=== PATIENT | female | born 1930 | race Caucasian/White ===

== ENCOUNTER 2019-06-23 18:31 | Emergency (ER) | payer OTHER ==
[~2019-06-23] VITALS: Ht 162.6 cm; Wt 40.9 kg
[~2019-06-23 18:31] MED LIST: NAPR-985 PO
[2019-06-23 18:36] VITALS: Ht 162.6 cm; Wt 40.9 kg
[2019-06-23] MEDS ORDERED: SOD CHLORIDE 0.9% 1,000 ML IV STA (18:55)
--- NOTE | 2019-06-23 20:00 | ERD ---
ER Documentation Chief Complaint Chief Complaint BIB RA FROM HOME W/ C/O LT KNEE PAIN X4 MONTHS, DENIES ANY INJURY HPI This is an 88-year-old female who lives alone and is able to attend her activities of daily living. She was brought into the emergency department by EMS as she stated she called 911 and she was unable to get to the emergency department on her own. She indicates that the main reason for calling 911 as she felt dizzy and lightheaded. The patient stated she woke this morning and made a large breakfast as she normally does. Shortly after she started to feel very lightheaded and dizzy and felt as though she was going to pass out. She stated she sat down and her symptoms did not improve. She denied any complete transient loss of consciousness. She denied a headache. She denied any changes in vision. She stated the dizziness was not a spinning-like sensation but where she felt very unsteady. She also indicates that she has a history of arthralgias and has been experiencing left knee pain for 4 months. She denies any trauma to the left knee. She had no fevers no shaking no chills. She denies any swelling to the left knee. She denies any chest pain. She has no shortness of breath at rest or exertion. She has a past medical history of hypertension and is compliant with her medications. She denies any frequency urgency or dysuria. ROS All systems reviewed and are negative except as per history of present illness. Allergies Allergies: Coded Allergies: No Known Allergy (Unverified , 06/23/19) PMhx/Soc Medical and Surgical Hx: pt denies Medical Hx, pt denies Surgical Hx Hx Alcohol Use: No Hx Substance Use: No Hx Tobacco Use: No Smoking Status: Never smoker Physical Exam Vitals Vital Signs Date Temp Pulse Resp B/P (MAP) Pulse Ox O2 O2 Flow FiO2 Time Delivery Rate 06/23/19 76 20 130/96 99 Room Air 20:46 (107) 06/23/19 98.7 81 19 121/81 96 Room Air 18:43 (94) 06/23/19 98.7 105 19 128/79 96 18:36 (95) Physical Exam Constitutional:Well-developed. Well-nourished and disheveled HEENT:Normocephalic. Atraumatic.Pupils were equal round reactive to light. Very dry mucous membranes.No tonsillar exudates. Poor oral dentition Neck: No nuchal rigidity. No lymphadenopathy. No posterior cervical spine tenderness or step-offs. Respiratory: Not using accessory muscles of respiration.Lungs were clear to auscultation bilaterally. No rhonchi. No rales. No wheezing. Cardiovascular: Regular rate regular rhythm.No murmurs. No rubs were a ppreciated.S1, S2 normal. Distal pulses are palpable 2+ bilaterally. GI: Abdomen was soft. Nontender. Non Distended. No pulsatile abdominal masses or bruits. No rebound. No guarding. Bowel sounds were present and normal. Muscle skeletal: Full range of motion of both the upper and lower extremities bilaterally.Normal muscle tone.No assymetrical calf tenderness or swelling. Tenderness over the left patella and no laxity on valgus or varus stress testing of the left of the right knee. Skin: No petechia, no purpura. No lesions on the palms or the soles of the feet. No maculopapular rash. NEURO: Patient was alert, awake, orientated x3.No facial droop. Gait observed and normal with no ataxia.Speech had regular rate and rhythm. No focal neurological deficits. Result Diagram: 06/23/19193606/23/191936 Results 24 hrs Laboratory Tests Test 06/23/19 19:37 White Blood Count 7.7 10^3/ul Red Blood Count 4.81 10^6/ul Hemoglobin 14.2 g/dl Hematocrit 45.5 % Mean Corpuscular Volume 94.6 fl Mean Corpuscular Hemoglobin 29.5 pg Mean Corpuscular Hemoglobin Concent 31.2 g/dl Red Cell Distribution Width 14.0 % Platelet Count 355 10^3/UL Mean Platelet Volume 9.6 fl Immature Granulocytes % 0.700 % Neutrophils % 70.5 % Lymphocytes % 17.7 % Monocytes % 6.9 % Eosinophils % 3.4 % Basophils % 0.8 % Nucleated Red Blood Cells % 0.0 /100WBC Immature Granulocytes # 0.050 10^3/ul Neutrophils # 5.4 10^3/ul Lymphocytes # 1.4 10^3/ul Monocytes # 0.5 10^3/ul Eosinophils # 0.3 10^3/ul Basophils # 0.1 10^3/ul Nucleated Red Blood Cells # 0.0 10^3/ul Prothrombin Time 12.2 Sec Prothrombin Time Ratio 1.0 INR International Normalized Ratio 0.89 Activated Partial Thromboplast Time 27.8 Sec Sodium Level 143 mmol/L Potassium Level 5.3 mmol/L Chloride Level 106 mmol/L Carbon Dioxide Level 27 mmol/L Anion Gap 10 Blood Urea Nitrogen 33 mg/dl Creatinine 1.25 mg/dl Est Glomerular Filtrat Rate mL/min mL/min Glucose Level 104 mg/dl Calcium Level 9.8 mg/dl Total Bilirubin 0.7 mg/dl Direct Bilirubin 0.00 mg/dl Indirect Bilirubin 0.7 mg/dl Aspartate Amino Transf (AST/SGOT) 30 IU/L Alanine Aminotransferase (ALT/SGPT) 25 IU/L Alkaline Phosphatase 78 IU/L Creatine Kinase 55 IU/L Creatine Kinase Index 1.6 Creatinine Kinase MB (Mass) 0.89 ng/ml Troponin I < 0.012 ng/ml B-Type Natriuretic Peptide 1310 PG/ML Total Protein 9.3 g/dl Albumin 4.9 g/dl Globulin 4.40 g/dl Albumin/Globulin Ratio 1.11 Current Medications Medications Dose Sig/Aroldo Start Time Status Last (Trade) Ordered Route PRN Stop Time Admin Dose Reason Admin Sodium 1,000 ml @ Q1H STAT 06/23/19 DC 06/23/19 Chloride 1,000 mls/hr IV 18:55 06/23/19 19:39 19:54 Procedures/MDM This patient was seen and evaluated by myself. The patient presented to the emergency department complaining of dizziness. My differential diagnosis included but was not limited to hypovolemia, myocardial infarction, pulmonary embolism, hypoglycemia, hypoxia, anemia, vasovagal episode, hypothyroidism, anxiety, peripheral or central vertigo. The patient was placed on a pharmaceutical worker, continuous pulse oximetry and IV access established by nursing staff. I obtained a 12-lead EKG tracing to rule for atypical myocardial infarction. 12 Lead EKG tracing ordered and reviewed by myself showed: Normal sinus rhythm of 84 bpm and no arrhythmia. TX interval normal. QRS duration normal. No ST segment elevation No ST segment depression. No changes consistent with acute ischemia. PVCs Patient also complained of left knee pain. Utilizing the auto ankle knee rules radiographic imaging was obtained of the left knee. This was reviewed by the radiologist myself and indicate the followin. No radiographic evidence of acute osseous abnormality noting background osteopenia. 2. Small tricompartmental osteophytes and vascular calcifications. Given that the patient was feeling dizzy and lightheaded I did feel is necessary to obtain a CT scan the patient's head. This was reviewed by the radiologist and indicate the following: No acute intracranial pathology. Moderate cerebral volume loss. 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 Moderate chronic microvascular ischemic changes. Atherosclerotic arterial calcifications. The patient had prerenal azotemia. This was treated with IV fluids. The patient's potassium was 5.3 and there is no peak T waves. I did not feel this required treatment as this was on the high end of normal. The patient's BNP was elevated at 1300. There was no signs of respiratory distress. No physical exam findings to suggest congestive heart failure. I obtained a chest radiograph which was reviewed by the radiologist myself and indicate the followin. The lungs are hyperinflated, suggesting COPD. 2. No acute cardiopulmonary disease demonstrated. I offered admission to the patient for observation however she stated she would prefer to be discharged home. Given the patient's age, and that she lives alone the patient was discharged at 9:30 PM with a taxi voucher. She was given copies of all of her lab work in addition to her radiographic imaging as she states she will follow-up with her primary care physician. Regarding the patient's knee pain she stated she is scheduled to see an orthopedic surgeon as I felt her symptoms were result of osteoarthritic changes. The patient was discharged home in fair condition. They were instructed to return to the emergency department at any time if there was any worsening of their condition. The patient stated they would follow up with their PCP in the next 24-48 hours to initiate a suitable medication regimen under the care of their PCP as well as to allow their PCP to monitor any drug reactions. The patient was discharged home with prescriptions after they gave informed consent to the new medication. They were also fully informed by myself on the adverse effects and adverse drug interactions in order to provide adequate safeguards to prevent possible adverse reactions to medications. Departure Diagnosis: Primary Impression: Knee pain Chronicity: acute Laterality: left Qualified Codes: M25.562 - Pain in left knee Additional Impression: Prerenal azotemia Condition: Fair BLANCA PEREZ MD Jun 23, 2019 20:00
[2019-06-23 20:46] VITALS: BP 130/96; PULSE 76; RESP 20
== END 2019-06-23 21:34 | disposition home or self-care (01) ==
LOC: E/R 18:31
DX: M25.562 Pain in left knee (principal); I10 Essential (primary) hypertension; R79.89 Other specified abnormal findings of blood chemistry; R07.9 Chest pain, unspecified; R42 Dizziness and giddiness
CPT/HCPCS: 70450; 71045; 73562; 80053; 82550; 82553; 83880; 84484; 85025; 85610; 85730; 93005; 99285; J7030